=== PATIENT | male | born 1975 | race Caucasian/White ===

== ENCOUNTER 2019-12-22 16:21 | Emergency (ER) | payer BC, OTHER ==
[2019-12-22] MEDS ORDERED: Ketorolac 30 MG/ML SDV IM ONE (16:48)
[2019-12-22] MEDS ORDERED: HYDROmorphone 1 MG/ML Syringe IM ONE ×2 (16:48→18:32)
[2019-12-22] MEDS ORDERED: Ondansetron 4 MG Tab.DIS PO ONE (16:48)
[2019-12-22] MEDS ORDERED: Cyclobenzaprine 10 MG Tab PO ONE (16:49)
--- NOTE | 2019-12-22 18:03 | CT ---
PROCEDURE INFORMATION: Exam: CT Thoracic Spine Without Contrast Exam date and time: 12/22/2019 4:58 PM Age: 44 years old Clinical indication: Other: Fall/pain; Additional info: Fell 15' onto back/buttock, low-middle back pain TECHNIQUE: Imaging protocol: Computed tomography images of the thoracic spine without contrast. Radiation optimization: All CT scans at this facility use at least one of these dose optimization techniques: automated exposure control; mA and/or kV adjustment per patient size (includes targeted exams where dose is matched to clinical indication); or iterative reconstruction. COMPARISON: No relevant prior studies available. FINDINGS: Vertebrae: There is approximately 30% loss of the anterior vertebral height of L1 with acute anterior cortical step-off and horizontal sclerotic line through the upper vertebral body. The other vertebral heights are maintained. The facet joints demonstrate mild degenerative hypertrophy and sclerosis. Discs/Spinal canal/Neural foramina: There is no evidence of foraminal stenosis. There is no evidence of spinal canal narrowing. Soft tissues: The extraspinous soft tissues are normal. Lungs: The visualized portions of the lungs are normal. IMPRESSION: Acute anterior compression of L1. No compromise of the spinal canal is seen.
--- NOTE | 2019-12-22 18:05 | CT ---
PROCEDURE INFORMATION: Exam: CT Lumbar Spine Without Contrast Exam date and time: 12/22/2019 4:58 PM Age: 44 years old Clinical indication: Other: Fall/pain; Additional info: Fell 15' onto back/buttock, low-middle back pain TECHNIQUE: Imaging protocol: Computed tomography images of the lumbar spine without contrast. Radiation optimization: All CT scans at this facility use at least one of these dose optimization techniques: automated exposure control; mA and/or kV adjustment per patient size (includes targeted exams where dose is matched to clinical indication); or iterative reconstruction. COMPARISON: No relevant prior studies available. FINDINGS: Vertebrae: The facet joints demonstrate mild degenerative hypertrophy and sclerosis. There is anterior compression of L1 with approximately 30 % decrease vertebral body height. The other vertebral body heights are maintained. Discs/Spinal canal/Neural foramina: The disc spaces are maintained. There is no significant spinal canal narrowing. There is no evidence of foraminal stenosis. Soft tissues: The extraspinous soft tissues are normal. IMPRESSION: Acute anterior compression fracture of the L1 vertebral body.
--- NOTE | 2019-12-22 18:18 | EDM.PDOC ---
"Scribed by Hope Quinn 12/22/19 4591 for Kendra Barksdale MD ED HPI GENERAL MEDICAL PROBLEM - General Chief Complaint: Lower Extremity Injury/Pain Stated Complaint: FALL/BACK PAIN Time Seen by Provider: 12/22/19 16:29 Source of Information: Reports: Patient, RN, RN Notes Reviewed History Limitations: Reports: No Limitations - History of Present Illness INITIAL COMMENTS - FREE TEXT/NARRATIVE: Patient presents to ED by POV stating that he fell off the op his camper. He was climbing up, laid his upper body onto the roof and went to push himself on up, but his hand slipped and he fell to the ground. He did not hit his head. Denies neck pain. Denies loss of bowel or bladder control, saddle area numbness or motor weakness. 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 ED EXAM,LOWER BACK PAIN/INJURY - Physical Exam Exam: See Below Exam Limited By: No Limitations General Appearance: Alert, WD/WN, No Apparent Distress, Other (Uncomfortable appearing) Eye Exam: Bilateral Eye: EOMI, Normal Inspection, PERRL Nose: Normal Inspection, No Blood Throat/Mouth: Normal Inspection, Normal Lips, Normal Voice, No Airway Compromise Head: Atraumatic, Normocephalic Neck: Normal Inspection, Supple, Non-Tender, Full Range of Motion Respiratory/Chest: No Respiratory Distress, Lungs Clear, Normal Breath Sounds, No Accessory Muscle Use, Chest Non-Tender Cardiovascular: Normal Peripheral Pulses, Regular Rate, Rhythm, No Edema, No Gallop, No JVD, No Murmur, No Rub GI/Abdominal: Normal Bowel Sounds, Soft, Non-Tender, No Organomegaly, No Distention, No Abnormal Bruit, No Mass (Male) Exam: Deferred Rectal (Males) Exam: Deferred Back Exam: Decreased Range of Motion, Muscle Spasm, Vertebral Tenderness (Focally tender at the thoracolumbar junction) Extremities: Normal Inspection, Normal Range of Motion, Non-Tender, No Pedal Edema, Normal Capillary Refill Neurological: Alert, Normal Mood/Affect, Normal Dorsiflexion, CN II-XII Intact, Normal Plantar Flexion, Normal Reflexes, No Motor/Sensory Deficits, Oriented x 3, Other (Antalgic gait due to back pain) Psychiatric: Normal Affect, Normal Mood Skin Exam: Warm, Intact, Normal Color, Diaphoretic Course - Vital Signs Last Recorded V/S: Last Vital Signs Temp 97 F 12/22/19 16:26 Pulse 98 12/22/19 16:26 Resp 20 12/22/19 16:26 BP 136/81 12/22/19 16:26 Pulse Ox 98 12/22/19 16:26 - Orders/Labs/Meds Labs: Laboratory Tests 12/22/19 Range/Units 17:41 Urine Color Yellow (YELLOW) Urine Appearance Clear (CLEAR) Urine pH 5.5 (5.0-9.0) Ur Specific St[place]al >= 1.030 (1.005-1.030) Urine Protein Negative (NEGATIVE) Urine Glucose (UA) Negative (NEGATIVE) Urine Ketones Negative (NEGATIVE) Urine Occult Blood Trace-intact H (NEGATIVE) Urine Nitrite Negative (NEGATIVE) Urine Bilirubin Negative (NEGATIVE) Urine Urobilinogen 0.2 (0.2-1.0) mg/dL Ur Leukocyte Esterase Negative (NEGATIVE) Urine RBC 0-5 /HPF Urine WBC 0-5 (0-5/HPF) /HPF Ur Epithelial Cells Rare (NOT SEEN) /HPF Amorphous Sediment Few (NOT SEEN) /HPF Urine Bacteria Rare (0-FEW/HPF) /HPF Urine Mucus Few H (NOT SEEN) /LPF Meds: Medications Discontinued Medications Generic Name Dose Route Start Last Admin Trade Name Freq PRN Reason Stop Dose Admin Cyclobenzaprine HCl 10 mg 12/22/19 16:49 12/22/19 17:06 Flexeril PO 12/22/19 16:50 10 mg ONETIME ONE Administration Hydromorphone HCl 2 mg 12/22/19 16:48 12/22/19 17:09 Dilaudid IM 12/22/19 16:49 2 mg ONETIME ONE Administration Ketorolac Tromethamine 60 mg 12/22/19 16:48 12/22/19 17:06 Toradol IM 12/22/19 16:49 60 mg ONETIME ONE Administration Ondansetron HCl 4 mg 12/22/19 16:48 12/22/19 17:00 Zofran Odt PO 12/22/19 16:49 4 mg ONETIME ONE Administration - Radiology Interpretation Free Text/Narrative:: [facility] Final Radiology Report Call: [phone] assistance Online chat: [email or web address] Name: ASHLI PERSAUD Age: 44Years M Date: 12/22/2019 SSN: -- : [id number] Study: CT THORACIC SPINE WO CONT Requesting Physician: KENDRA BARKSDALE Images: [id number] Addl Studies: Provided Clinical History: Fell 15' onto back/buttock, low-middle back pain Contrast: Without Contrast Medium: Contrast Amount: Contrast Method: Page 1 of 2 PROCEDURE INFORMATION: Exam: CT Thoracic Spine Without Contrast Exam date and time: 12/22/2019 4:58 PM Age: 44 years old Clinical indication: Other: Fall/pain; Additional info: Fell 15' onto back/buttock, low-middle back pain TECHNIQUE: Imaging protocol: Computed tomography images of the thoracic spine without contrast. Radiation optimization: All CT scans at this facility use at least one of these dose optimization techniques: automated exposure control; mA and/or kV adjustment per patient size (includes targeted exams where dose is matched to clinical indication); or iterative reconstruction. COMPARISON: No relevant prior studies available. FINDINGS: Vertebrae: There is approximately 30% loss of the anterior vertebral height of L1 with acute anterior cortical step-off and horizontal sclerotic line through the upper vertebral body. The other vertebral heights are maintained. The facet joints demonstrate mild degenerative hypertrophy and sclerosis. Discs/Spinal canal/Neural foramina: There is no evidence of foraminal stenosis. There is no evidence of spinal canal narrowing. Soft tissues: The extraspinous soft tissues are normal. Lungs: The visualized portions of the lungs are normal. IMPRESSION: Acute anterior compression of L1. No compromise of the spinal canal is seen. Thank you for allowing us to participate in the care of your patient. ASHLI PERSAUD | Final Radiology Report CONFIDENTIALITY STATEMENT This report is intended only for use by the referring physician, and only in accordance with law. If you received this in error, call [phone]. Page 2 of 2 Dictated and Authenticated by: Boogie Marr MD 12/22/2019 6:03 PM Central Time ([place] & [place]) [facility] Final Radiology Report Call: [phone] assistance Online chat: [email or web address] Name: ASHLI PERSAUD Age: 44Years M Date: 12/22/2019 SSN: -- : [id number] Study: CT LUMBAR SPINE WO CONT Requesting Physician: KENDRA BARKSDALE Images: [id number] Addl Studies: Provided Clinical History: Fell 15' onto back/buttock, low-middle back pain Contrast: Without Contrast Medium: Contrast Amount: Contrast Method: Page 1 of 2 PROCEDURE INFORMATION: Exam: CT Lumbar Spine Without Contrast Exam date and time: 12/22/2019 4:58 PM Age: 44 years old Clinical indication: Other: Fall/pain; Additional info: Fell 15' onto back/ buttock, low-middle back pain TECHNIQUE: Imaging protocol: Computed tomography images of the lumbar spine without contrast. Radiation optimization: All CT scans at this facility use at least one of these dose optimization techniques: automated exposure control; mA and/or kV adjustment per patient size (includes targeted exams where dose is matched to clinical indication); or iterative reconstruction. COMPARISON: No relevant prior studies available. FINDINGS: Vertebrae: The facet joints demonstrate mild degenerative hypertrophy and sclerosis. There is anterior compression of L1 with approximately 30 % decrease vertebral body height. The other vertebral body heights are maintained. Discs/Spinal canal/Neural foramina: The disc spaces are maintained. There is no significant spinal canal narrowing. There is no evidence of foraminal stenosis. Soft tissues: The extraspinous soft tissues are normal. IMPRESSION: Acute anterior compression fracture of the L1 vertebral body. Thank you for allowing us to participate in the care of your patient. Dictated and Authenticated by: Boogie Marr MD ASHLI PERSAUD | Final Radiology Report CONFIDENTIALITY STATEMENT This report is intended only for use by the referring physician, and only in accordance with law. If you received this in error, call [phone]. Page 2 of 2 12/22/2019 6:04 PM Central Time ([place] & [place]) - Re-Assessments/Exams Free Text/Narrative Re-Assessment/Exam: 12/22/19 18:14 Dr. Brown consulted for neurosurgery via [facility]. He advises to transfer pt to [facility], GF to the ER for eval. and admission, and he consult and plans to take pt to OR tomorrow. Departure - Departure Time of Disposition: 18:16 Disposition: DC/Tfer to Acute Hospital 02 Condition: Fair Clinical Impression: Fall from, out of or through roof, initial encounter Closed compression fracture of L1 vertebra Qualifiers: Encounter type: initial encounter Qualified Code(s): S32.010A - Wedge compression fracture of first lumbar vertebra, initial encounter for closed fracture - Discharge Information *PRESCRIPTION DRUG MONITORING PROGRAM REVIEWED*: Not Applicable *COPY OF PRESCRIPTION DRUG MONITORING REPORT IN PATIENT MARIBETH: Not Applicable Forms: ED Department Discharge, Interfacility Transfer EMTALA Sepsis Event Note (ED) - Focused Exam Vital Signs: Vital Signs Temp Pulse Resp BP Pulse Ox 12/22/19 16:26 97 F 98 20 136/81 98 I have read and agree with the documentation that has been completed regarding this visit. By signing this record, I attest that the documentation was completed in my physical presence and is an accurate record of the encounter."
== END 2019-12-22 18:44 ==
LOC: DL.ED 16:21
DX: S32.019A Unspecified fracture of first lumbar vertebra, initial encounter for closed fracture (principal); W13.2XXA Fall from, out of or through roof, initial encounter
CPT/HCPCS: 72128; 72131; 81001; 96372; 99285; A9270; J1170; J1885